=== PATIENT | male | born 1995 ===

== ENCOUNTER 2020-12-08 02:40 | Emergency (ER) | payer OTHER ==
[2020-12-08 03:17] VITALS: RESP 18; TEMP 98.4
--- NOTE | 2020-12-08 03:35 | ED ---
Recheck HPI - General Chief Complaint: Recheck/Abnormal Lab/Rx Stated Complaint: covid swab Time Seen by Provider: 12/08/20 02:42 Source: patient, RN notes reviewed, old records reviewed Mode of arrival: ambulatory Limitations: no limitations - History of Present Illness Initial Comments: This is a 25-year-old male to the emergency room today. Patient presents today for evaluation regards to coronavirus testing. Patient presents for coronavirus test due to x-ray and a Tj. Time is no significant complaints, no headache chest pain shortness breath or abdominal pain no fevers. MD Complaint: other (Needs coronavirus test) -: minutes(s) Returns Today for: request for prescription (Coronavirus test) Symptoms Since Prior Visit: no new symptoms Context: planned re-check Associated Symptoms: none Review of Systems ROS Statement: Those systems with pertinent positive or pertinent negative responses have been documented in the HPI. ROS Other: All systems not noted in ROS Statement are negative. Past Medical History Past Medical History: No Reported History History of Any Multi-Drug Resistant Organisms: None Reported Past Surgical History: No Surgical Hx Reported Smoking Status: Unknown if ever smoked Past Alcohol Use History: None Reported Past Drug Use History: None Reported General Exam General appearance: alert, in no apparent distress Head exam: Present: atraumatic, normocephalic, normal inspection Eye exam: Present: normal appearance, PERRL, EOMI. Absent: scleral icterus, conjunctival injection, periorbital swelling ENT exam: Present: normal exam, mucous membranes moist Neck exam: Present: normal inspection. Absent: tenderness, meningismus, lymphadenopathy Respiratory exam: Present: normal lung sounds bilaterally. Absent: respiratory distress, wheezes, rales, rhonchi, stridor Cardiovascular Exam: Present: regular rate, normal rhythm, normal heart sounds. Absent: systolic murmur, diastolic murmur, rubs, gallop, clicks GI/Abdominal exam: Present: soft, normal bowel sounds. Absent: distended, tenderness, guarding, rebound, rigid Extremities exam: Present: normal inspection, full ROM, normal capillary refill. Absent: tenderness, pedal edema, joint swelling, calf tenderness Back exam: Present: normal inspection Neurological exam: Present: alert, oriented X3, CN II-XII intact Psychiatric exam: Present: normal affect, normal mood Skin exam: Present: warm, dry, intact, normal color. Absent: rash Course Vital Signs 10/30/21 03:14 Temperature 98.4 F Pulse Rate 87 Respiratory 18 Rate Blood Pressure 135/89 O2 Sat by Pulse 99 Oximetry - Reevaluation(s) Reevaluation #1: 12/08/20 03:34 Medical record is reviewed Reevaluation #2: 12/08/20 03:34 Informed of results and questions are answered Medical Decision Making - Medical Decision Making 25 male with negative coronavirus test here in the ER patient can be discharged home - Lab Data Lab Results 12/08/20 Range/Units 02:59 Coronavirus (PCR) Not Detected (Not Detectd) Disposition Clinical Impression: Normal exam Disposition: HOME SELF-CARE Condition: Good Instructions (If sedation given, give patient instructions): Normal Exam (ED) Is patient prescribed a controlled substance at d/c from ED?: No Referrals: None,Stated [Primary Care Provider] - 1-2 days
[2020-12-08 04:02] VITALS: BP 124/74; PULSE 74
== END 2020-12-08 04:02 | disposition home or self-care (01) ==
LOC: EC 02:40
DX: Z20.822 Contact with and (suspected) exposure to COVID-19 (principal)
CPT/HCPCS: 87635; 99282